=== PATIENT | female | born 1995 | race Hispanic/Latino ===

== ENCOUNTER 2018-07-15 19:55 | Inpatient (IN) ==
[2018-07-15] MEDS ORDERED: PITOCIN ONE (20:07)
[2018-07-15] MEDS ORDERED: TYLENOL PO PRN (20:29)
[2018-07-15] MEDS ORDERED: PEPCID PO ONE (20:29)
[2018-07-15] MEDS ORDERED: PEPCID IV PRN (20:29)
[2018-07-15] MEDS ORDERED: REGLAN PO ONE (20:29)
[2018-07-15] MEDS ORDERED: PEPCID PO PRN (20:29)
[2018-07-15] MEDS ORDERED: ZOFRAN IV PRN (20:29)
[2018-07-15] MEDS ORDERED: STADOL IV PRN (20:29)
[2018-07-15] MEDS ORDERED: LR 500 ML IV ONE (20:29)
[2018-07-15] MEDS ORDERED: KEFZOL 1 GM/D5W 1 GM/50 ML IVPB IV PRN (20:29)
[2018-07-15] MEDS ORDERED: PITOCIN 30 UNITS/NS 30 UNIT/500 ML IV.SOLN IV SCH (20:30)
[2018-07-15] MEDS ORDERED: LR 1,000 ML IV SCH (20:30)
[2018-07-15] MEDS ORDERED: SODIUM CHLORIDE 0.9% INJ SCH (20:30)
[2018-07-15 21:30] LABS: BASO# 0.01 X1000 (0.0-0.2); BASO% 0.1 % (0.0-0.8); EOS# 0.28 X1000 (0.0-0.7); EOS% 1.9 % (0.0-10.0); HEMATOCRIT 38.7 % (37.0-47.0); IMM GRAN# 0.03 X1000 (0.0-0.04); IMM GRAN% 0.2 % (0.0-0.5); LYMPH# 1.73 X1000 (1.2-3.4); MCHC 33.6 g/dL (33-37); MCV 89.2 FL (81-99); MONO# 0.71 X1000 (0.11-0.59); MONO% 4.9 % (1.7-9.3); MPV 10.8 FL (7.4-10.4); NEUT# 11.63 X1000 (1.4-6.5); NEUT% 80.9 % (42.2-75.2); PLT 237 X1000 (130-400); RBC 4.34 XMIL (4.2-5.4); RDW 12.4 % (11.5-14.5); WBC 14.39 X1000 (4.8-10.8)
[2018-07-15 21:53] LABS: RAPID HIV PRESUMPTIVE NEGATIVE
[2018-07-16] MEDS ORDERED: BOOSTRIX VACCINE IM ONE (04:26)
[2018-07-16] MEDS ORDERED: HYDROXYZINE IM PRN (04:26)
[2018-07-16] MEDS ORDERED: PITOCIN IM PRN (04:26)
[2018-07-16] MEDS ORDERED: ATARAX PO PRN (04:26)
[2018-07-16] MEDS ORDERED: AMBIEN PO PRN (04:26)
[2018-07-16] MEDS ORDERED: NORCO-5 PO PRN (04:26)
[2018-07-16] MEDS ORDERED: NORCO-10 PO PRN (04:26)
[2018-07-16] MEDS ORDERED: BENADRYL PO PRN (04:26)
[2018-07-16] MEDS ORDERED: PERI MEDS (DERMOPLAST/NUPERCAINAL/TUCKS) MISC PRN (04:26)
[2018-07-16] MEDS ORDERED: M-M-R II VACCINE SUBQ ONE (04:26)
--- NOTE | 2018-07-16 04:45 | HISTORY AND PHYSICAL ---
HISTORY OF PRESENT ILLNESS: A 23-year-old 2, para 1, who was brought up from the emergency room completely dilated. She has no care. She has no idea when her last menstrual period was or what her due date might be. She is non-Azeri speaking. She had rupture of membranes on the way up from the emergency room. She was found to be completely dilated upon arrival. 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 PAST MEDICAL HISTORY: Negative. PAST SURGICAL HISTORY: Negative. MEDICATIONS: None. ALLERGIES: None. PHYSICAL EXAMINATION: GENERAL APPEARANCE: Well-nourished, well-developed in moderate distress. HEENT: Normocephalic, atraumatic. ABDOMEN: Term size fetus. PELVIS: She is completely dilated with the head at +2. The bag of water is tightly applied to the head. EXTREMITIES: No cyanosis, clubbing, or edema. ASSESSMENT: No care. Term or near term intrauterine with delivery eminent. PLAN: Vaginal delivery. cc: Callum Duran MD
--- NOTE | 2018-07-16 04:51 | OPERATIVE NOTE ---
PROCEDURE DATE: 07/15/2018 DELIVERY NOTE: The patient was placed in supine position on the bed. Examination revealed the head to be . She subsequently had a vaginal delivery of a vigorous female from [place] over an intact perineum. There was some at least terminal meconium noted on the head after delivery. The cord was clamped and cut, and the infant was passed off for further care. Cord blood was obtained. The placenta was manually extracted. It will be sent to pathology due to the history of no care. No lacerations. EBL 200 mL. Procedure well tolerated. cc: Callum Duran MD MTDD
[2018-07-16 06:04] LABS: UR AMPHETAMINES QUAL NONE DETECTED (NONE DETECT); UR BARBITUATES QUAL NONE DETECTED (NONE DETECT); UR BENZODIAZEPIN QUAL NONE DETECTED (NONE DETECT); UR COCAINE QUAL NONE DETECTED (NONE DETECT); UR METHADONE QUAL NONE DETECTED (NONE DETECT); UR METHAMPHETAMINE QUAL NONE DETECTED (NONE DETECT); UR OPIATES QUAL NONE DETECTED (NONE DETECT); UR OXYCODONE QUAL NONE DETECTED (NONE DETECT); UR PCP QUAL NONE DETECTED (NONE DETECT); UR PROPOXYPHENE QUAL NONE DETECTED (NONE DETECT)
[2018-07-16 06:05] LABS: UR CANNABINOIDS QUAL NONE DETECTED (NONE DETECT); UR TCA QUAL NONE DETECTED (NONE DETECT)
[2018-07-16 06:52] LABS: BASO# 0.02 X1000 (0.0-0.2); BASO% 0.2 % (0.0-0.8); EOS# 0.41 X1000 (0.0-0.7); EOS% 3.7 % (0.0-10.0); HEMATOCRIT 36.7 % (37.0-47.0); HEMOGLOBIN 12.1 g/dL (12.0-16.0); IMM GRAN# 0.04 X1000 (0.0-0.04); IMM GRAN% 0.4 % (0.0-0.5); LYMPH# 2.48 X1000 (1.2-3.4); LYMPH% 22.6 % (20.5-51.1); MCH 29.9 PG (27-31); MCV 90.6 FL (81-99); MONO# 0.78 X1000 (0.11-0.59); MONO% 7.1 % (1.7-9.3); MPV 10.8 FL (7.4-10.4); NEUT# 7.23 X1000 (1.4-6.5); PLT 233 X1000 (130-400); RBC 4.05 XMIL (4.2-5.4); RDW 12.4 % (11.5-14.5); WBC 10.96 X1000 (4.8-10.8)
--- NOTE | 2018-07-16 07:34 | OB/GYN PROGRESS NOTE ---
Progress Note OB - . Patient Problems: Current Active Problems Problem Status Onset Vaginal delivery Acute OB Progress Note: Vital Signs - 24 hr 07/15/18 20:15 07/15/18 21:30 07/15/18 23:30 Temperature 98.2 F 97.8 F 98.0 F Pulse Rate 75 77 96 H Respiratory Rate 20 18 16 Blood Pressure 124/73 116/72 110/60 O2 Sat by Pulse Oximetry 96 99 99 07/16/18 01:30 Temperature 97.8 F Pulse Rate 84 Respiratory Rate 16 Blood Pressure 100/60 O2 Sat by Pulse Oximetry 98 Laboratory Results - last 24 hr 07/15/18 07/15/18 07/15/18 21:00 21:00 21:00 WBC RBC Hgb Hct MCV MCH MCHC RDW Std Deviation Plt Count MPV Immature Gran % (Auto) Neut % (Auto) Lymph % (Auto) Fleming % (Auto) Eos % (Auto) Baso % (Auto) Immature Gran # (Auto) Neut # (Auto) Lymph # (Auto) Fleming # (Auto) Eos # (Auto) Baso # (Auto) Glucose 94 Urine Opiates Screen Ur Oxycodone Screen Urine Methadone Screen U Propoxyphene Qual Ur Barbituates Screen Ur Tricyclics Screen Ur Phencyclidine Scrn Ur Amphetamines Screen U Methamphetamines Scrn U Benzodiazepines Scrn Urine Cocaine Screen U Cannabinoids Screen RPR NON-REACTIVE HIV 1&2 Antibody Rapid PRESUMPTIVE NEGATIVE Blood Type Antibody Screen 07/15/18 07/15/18 07/16/18 21:00 21:00 05:39 WBC 14.39 H RBC 4.34 Hgb 13.0 Hct 38.7 MCV 89.2 MCH 30.0 MCHC 33.6 RDW Std Deviation 12.4 Plt Count 237 MPV 10.8 H Immature Gran % (Auto) 0.2 Neut % (Auto) 80.9 H Lymph % (Auto) 12.0 L Fleming % (Auto) 4.9 Eos % (Auto) 1.9 Baso % (Auto) 0.1 Immature Gran # (Auto) 0.03 Neut # (Auto) 11.63 H Lymph # (Auto) 1.73 Fleming # (Auto) 0.71 H Eos # (Auto) 0.28 Baso # (Auto) 0.01 Glucose Urine Opiates Screen NONE DETECTED Ur Oxycodone Screen NONE DETECTED Urine Methadone Screen NONE DETECTED U Propoxyphene Qual NONE DETECTED Ur Barbituates Screen NONE DETECTED Ur Tricyclics Screen NONE DETECTED Ur Phencyclidine Scrn NONE DETECTED Ur Amphetamines Screen NONE DETECTED U Methamphetamines Scrn NONE DETECTED U Benzodiazepines Scrn NONE DETECTED Urine Cocaine Screen NONE DETECTED U Cannabinoids Screen NONE DETECTED RPR HIV 1&2 Antibody Rapid Blood Type O POSITIVE Antibody Screen NEGATIVE 07/16/18 06:21 WBC 10.96 H RBC 4.05 L Hgb 12.1 Hct 36.7 L MCV 90.6 MCH 29.9 MCHC 33.0 RDW Std Deviation 12.4 Plt Count 233 MPV 10.8 H Immature Gran % (Auto) 0.4 Neut % (Auto) 66.0 Lymph % (Auto) 22.6 Fleming % (Auto) 7.1 Eos % (Auto) 3.7 Baso % (Auto) 0.2 Immature Gran # (Auto) 0.04 Neut # (Auto) 7.23 H Lymph # (Auto) 2.48 Fleming # (Auto) 0.78 H Eos # (Auto) 0.41 Baso # (Auto) 0.02 Glucose Urine Opiates Screen Ur Oxycodone Screen Urine Methadone Screen U Propoxyphene Qual Ur Barbituates Screen Ur Tricyclics Screen Ur Phencyclidine Scrn Ur Amphetamines Screen U Methamphetamines Scrn U Benzodiazepines Scrn Urine Cocaine Screen U Cannabinoids Screen RPR HIV 1&2 Antibody Rapid Blood Type Antibody Screen All communication via language line for [place] No complaints Alert, oriented Lungs CTA Fundus firm, NT Lochia decreased Calves nontender Hgb 12.1 O positive Assess: PPD#1 s/p without complications No care Non Yoruba speaking Plan: Continue care Anticipate discharge tomorrow evening (~48 hrs after delivery)
[2018-07-16 12:19] LABS: RUBELLA SCREEN NON IMMUNE (IMMUNE)
[2018-07-16 16:47] LABS: HIV ANTIBODY SCREEN SEE COMMENTS
[2018-07-17] MEDS: PERICOLACE PO SCH (04:23)
[2018-07-17 09:23] LABS: HEPATITIS B SURFACE ANTIGEN SEE COMMENTS
--- NOTE | 2018-07-17 10:06 | PROGRESS NOTE ---
DATE: 07/17/2018 SUBJECTIVE: No complaints. Denies PIH or orthostatic symptoms. OBJECTIVE: Vital signs: Temperature is 98.6, heart rate 80, respirations 18, blood pressure 117/66. O2 saturation is 99% on room air. General: Alert and oriented, in no acute distress. Pulmonary: Clear to auscultation bilaterally. Cardiovascular: Regular rate and rhythm. Abdomen: Soft, nondistended, nontender. Fundus firm. Normal lochia. No cyanosis, clubbing or edema. DIAGNOSTIC DATA: White count is 10.96, hemoglobin 12.1, hematocrit 36.1, platelets 233. ASSESSMENT: A 22-year-old 2, now para 2, status day 2, status post spontaneous vaginal delivery, doing well. PLAN: Discharge home in the p.m. Follow up with Dr. Pena in 6 weeks or as needed. cc: MD Callum Fermin MD
[2018-07-17] MEDS: MOTRIN PO PRN (14:43)
[2018-07-18] MEDS: PERICOLACE PO SCH (03:58)
[2018-07-18 06:59] VITALS: BP 111/71
--- NOTE | 2018-07-18 08:04 | PROGRESS NOTE ---
DATE: 07/18/2018 SUBJECTIVE: No complaints. Denies PIH or orthostatic symptoms. PHYSICAL EXAMINATION: Vital Signs: Temperature 97.5 degrees, pulse rate 80, respirations 16, blood pressure 111/71, O2 saturation 99% on room air. General: Alert and oriented, in no acute distress. Pulmonary: Clear to auscultation bilaterally. CV: Regular rate and rhythm. Abdomen: Soft, nondistended. Fundus firm. Pelvic: Normal lochia. Extremities: No clubbing, cyanosis, or edema. LABORATORY DATA: No labs. ASSESSMENT AND PLAN: Ms. Leighton Fragoso is a 22-year-old now day 3, doing well with no complications. The patient's discharge was held yesterday as baby was not ready for discharge. She will be discharged home today and will follow up with Dr. Pena for care. cc: MD Callum Fermin MD
[2018-07-18] MEDS ORDERED: FLU VACCINE IM ONE (09:45)
[2018-07-18] MEDS: MOTRIN PO PRN (10:02)
== END 2018-07-18 11:00 | disposition home or self-care (01) | DRG 807 ==
LOC: P.LD 20:12
PROVIDERS: ADMIT Obstetrics & Gynecology; ATTEND Obstetrics & Gynecology
CPT/HCPCS: 80104; 80301; 80305; 82947; 85025; 86592; 86701; 86703; 86762; 86850; 86900; 86901; 87340; 87389; 87390; 87491; 87591; 90686; 90707; 90715; A9270; G0431; G0434; G0477; J2590